=== PATIENT | female | born 1975 | race Caucasian/White ===

== ENCOUNTER → 2018-04-11 10:21 | Outpatient (CLI) | payer OTHER, SELFPAY ==
--- NOTE | 2018-04-11 10:24 | DI.RAD.S_ITS ---
PROCEDURE: XR RIBS LT MIN 3V W CXR1V INDICATIONS: left rib lateral injury, r/o fracture TECHNIQUE: 2 views of the left ribs were acquired, along with a single view chest. COMPARISON: [facility], , XR CHEST 2VW, 06/19/2017, 17:22. FINDINGS: Surgical changes and devices: None. Skin marker overlies the left 10th rib. Bones and chest wall: There is a mildly displaced fracture in the posterolateral aspect of the left 10th rib. Lungs and pleura: No pleural effusions or pneumothorax. Mild atelectasis at the left lung base. Mediastinum: Mediastinal contours appear normal. Heart size is normal. IMPRESSION: Fracture left 10th rib with overlying lower lobe atelectasis. No pneumothorax. Dictated by: Stan Grewal M.D. on 04/11/2018 at 10:38 Approved by: Stan Grewal M.D. on 04/11/2018 at 10:43
== END ==
PROVIDERS: PCP Family Medicine; Visit Provider Physician Assistant
DX: S22.32XA Fracture of one rib, left side, initial encounter for closed fracture (principal)
CPT/HCPCS: 71101

== ENCOUNTER 2019-05-29 06:18 | Emergency (ER) | payer OTHER, SELFPAY ==
[2019-05-29 06:22] VITALS: BP 158/139; PULSE 161; RESP 35; TEMP 36.5; O2SAT 87; BMI 27.4
[2019-05-29] MEDS: ALBUTEROL/IPRATROPIUM 3 ML AMPUL INH ×3 (06:24→07:22)
[2019-05-29 06:28] VITALS: PULSE 131; RESP 28; O2SAT 98
[2019-05-29] MEDS: DEXAMETHASONE 10 MG/ML VIAL PO (06:37)
[2019-05-29 06:47] VITALS: BP 140/84; PULSE 113; RESP 17; O2SAT 100
--- NOTE | 2019-05-29 06:52 | ED.SOB ---
HPI - SOB/Dyspnea General Chief Complaint: Shortness of Breath/Dyspnea Stated Complaint: Trouble breathing Time Seen by Provider: 05/29/19 06:20 Source: patient Mode of arrival: ambulatory Limitations: no limitations History of Present Illness Patient is a 43-year-old female with a history of asthma and allergies. She has a nebulizer at home which she states she uses occasionally. She also has an albuterol inhaler at home which she states she uses on a daily basis. She has been in the emergency department in the past for asthma but has never been admitted or intubated. Woke up this morning with wheezing. Was using the nebulizer at home but was unable to maintain her breathing so she came into the emergency department for evaluation. Related Data Previous Rx's Medication Instructions Recorded fluticasone propionate 1 spray INTRANASAL QDAY PRN #1 bot 05/12/17 pseudoephedrine HCl 30 mg PO Q6HP PRN #30 tab 08/17/17 hydrocodone 5 mg-acetaminophen 325 1 tab PO Q4-6H PRN #10 tab 04/11/18 mg tablet albuterol sulfate 3 ml INH Q4HP PRN #1 ea 10/03/18 varenicline 0.5 mg (11)-1 mg (42) See Rx Instructions PO PER PKG DIR 10/10/18 tablets in a dose pack #53 each montelukast [Singulair] 10 mg PO QDAY #30 tab 12/26/18 omeprazole 40 mg PO QAM #30 cap 12/26/18 varenicline 1 mg tablet 1 mg PO BID #56 tab 02/14/19 ipratropium-albuterol 0.5 mg-3 3 ml INHALATION Q8H PRN #90 ml 02/15/19 mg(2.5 mg base)/3 mL nebulization soln prednisone 20 mg tablet See Rx Instructions PO DAILY #30 02/21/19 tab atomoxetine 40 mg capsule 40 mg PO DAILY #30 cap 03/13/19 albuterol sulfate HFA 90 2 puff INHALATION Q4HP #3 inh 05/08/19 mcg/actuation aerosol inhaler temazepam 22.5 mg capsule 22.5 mg PO HS PRN #30 cap 05/08/19 Allergies Allergy/AdvReac Type Severity Reaction Status Date / Time No Known Allergies Allergy Uncoded 08/15/18 14:23 Review of Systems Constitutional Denies fever(s) and Denies headache(s) ENT Ears, Nose, Mouth, and Throat: Denies headache(s) Cardiovascular Denies chest pain and Reports dyspnea Respiratory Reports cough, Reports dyspnea and Reports wheezing Gastrointestinal Gastrointestinal: Denies abdominal pain, Denies nausea and Denies vomiting Musculoskeletal Denies myalgias and Denies arthralgias Integumentary/Breasts Denies new lesions and Denies rash Neurologic Denies headache(s) Hematologic/Lymphatic Denies easy bleeding and Denies easy bruising Allergic/Immunologic Denies urticaria and Reports wheezing [facility] Medical History Asthma (Acute) Environmental allergies (Acute) Surgical History Status post delivery (01/30/05) Family History Family/Other Family history of varicose veins Sister No problems noted. Social History number of children: 1 household members: spouse and children pets and animals: Yes education level: high school other: Camping, traveling, walking, hiking seatbelt use: sometimes helmet use: Yes (Sometimes) water heater temp set < 120 deg: Yes working smoke detector in home: Yes fire extinguisher in home: Yes carbon monox detector in home: Yes firearms in home: Yes Smoking Status: Former smoker alcohol intake: current substance use type: marijuana and other during the past year weight has: increased > 10 lbs well-balanced diet: rarely or never daily servings fruits/ve-1 caffeine: Yes (1-3 caffeine drinks per week) eating out: 1-3 times/week frequency: 1-2 times per week duration: 45-60 minutes/day 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 History number of children: 1 household members: spouse and children pets and animals: Yes education level: high school other: Camping, traveling, walking, hiking seatbelt use: sometimes helmet use: Yes (Sometimes) water heater temp set < 120 deg: Yes working smoke detector in home: Yes fire extinguisher in home: Yes carbon monox detector in home: Yes firearms in home: Yes Smoking Status: Former smoker alcohol intake: current substance use type: marijuana and other during the past year weight has: increased > 10 lbs well-balanced diet: rarely or never daily servings fruits/ve-1 caffeine: Yes (1-3 caffeine drinks per week) eating out: 1-3 times/week frequency: 1-2 times per week duration: 45-60 minutes/day 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 Initial Vital Signs Initial Vital Signs: Vital Signs Temperature 97.7 F 05/29/19 06:22 Pulse Rate 161 H 05/29/19 06:22 Respiratory Rate 35 H 05/29/19 06:22 Blood Pressure 158/139 H 05/29/19 06:22 Pulse Oximetry 87 L 05/29/19 06:22 Const General: cooperative, well developed, well groomed and No acute distress Orientation: alert and awake HENMT Head: normal to inspection and normocephalic Chest Chest: normal inspection of the chest Resp Effort & Inspection: audible wheezes, cough, labored, no retractions and tachypneic Auscultation: wheezes Cardio Rate: regular rate Rhythm: regular rhythm Pulses: radial pulses present GI Inspection: non-distended Palpation: soft and No firm Skin Lesions: no lesions Rashes: no rashes Neuro General: alert, awake and oriented x3 Cognition: normal cognition Speech: speech normal Extrem General: normal to inspection and capillary refill normal Psych Appearance: grossly normal and well kempt Course Orders Ordered: Discontinued Medications Albuterol/Ipratropium (Duoneb) 3 ml INH NOW ONE Stop: 05/29/19 06:21 Last Admin: 05/29/19 06:24 Dose: 3 ml Albuterol/Ipratropium (Duoneb) 3 ml INH NOW ONE Stop: 05/29/19 06:21 Last Admin: 05/29/19 06:24 Dose: 3 ml Albuterol/Ipratropium (Duoneb) 3 ml INH NOW ONE Stop: 05/29/19 06:28 Dexamethasone (Decadron) 10 mg PO NOW ONE Stop: 05/29/19 06:21 Last Admin: 05/29/19 06:37 Dose: 10 mg Vital Signs - 8 hr 05/29/19 06:22 05/29/19 06:28 05/29/19 06:47 Temperature 97.7 F Pulse Rate 161 H 131 H 113 H Respiratory Rate 35 H 28 H 17 Blood Pressure 158/139 H Blood Pressure [Left Arm] 140/84 Pulse Oximetry 87 L 98 100 MDM - SOB/Dyspnea MDM Narrative Medical decision making narrative: Patient received 2 duo nebs in the emergency department in this did improve her symptoms tremendously. Also received Decadron p.o. patient reports improvement of symptoms. Care turned over to day provider to re-evaluate and disposition Discharge Plan Departure Prescriptions: No Action hydrocodone-acetaminophen 5-325 mg tablet 1 tab PO Q4-6H PRN (Reason: fracture pain) Qty: 10 RF: 0 fluticasone propionate 16 GM spray,suspension 1 spray Intranasal QDAY PRNQty: 1 RF: 1 pseudoephedrine HCl 30 MG tablet 30 mg PO Q6HP PRNQty: 30 RF: 1 albuterol sulfate 2.5 mg /3 mL (0.083 %) solution for nebulization 3 ml INH Q4HP PRNQty: 1 RF: 5 varenicline [Chantix Starting Month Box] 0.5 mg (11)- 1 mg (42) tablets,dose pack See Rx Instructions PO PER PKG DIR Qty: 53 RF: 0 montelukast [Singulair] 10 mg tablet 10 mg PO QDAY Qty: 30 RF: 11 omeprazole 40 mg capsule,delayed release(DR/EC) 40 mg PO QAM Qty: 30 RF: 12 varenicline 1 mg tablet 1 mg PO BID Qty: 56 RF: 0 ipratropium-albuterol 0.5 mg-3 mg(2.5 mg base)/3 mL solution for nebulization 3 ml INHALATION Q8H PRN (Reason: shortness of breath or wheezing) Qty: 90 RF: 3 prednisone 20 mg tablet See Rx Instructions PO DAILY Qty: 30 RF: 0 atomoxetine 40 mg capsule 40 mg PO DAILY Qty: 30 RF: 2 Ventolin HFA 90 mcg/actuation HFA aerosol inhaler 2 puff INHALATION Q4HP Qty: 3 RF: 5 temazepam 22.5 mg capsule 22.5 mg PO HS PRN (Reason: sleep) Qty: 30 RF: 0
[2019-05-29 07:22] VITALS: PULSE 109; RESP 18; O2SAT 100
[2019-05-29 08:00] VITALS: BP 136/73; PULSE 119; RESP 17; O2SAT 100
== END 2019-05-29 08:28 | disposition home or self-care (01) ==
PROVIDERS: Emergency Provider Emergency Medicine; Family Provider Internal Medicine
DX: J45.901 Unspecified asthma with (acute) exacerbation (principal)
CPT/HCPCS: 36591; 94640; 99283; 99284; J1100

== ENCOUNTER 2019-10-02 04:04 | Emergency (ER) | payer OTHER, SELFPAY ==
[2019-10-02 04:07] VITALS: BP 125/73; PULSE 130; RESP 30; TEMP 36.4; O2SAT 97; BMI 27.4
--- NOTE | 2019-10-02 04:19 | DI.RAD.S_ITS ---
PROCEDURE: XR CHEST 2V INDICATIONS: wheeze, cough TECHNIQUE: 2 views of the chest were acquired. COMPARISON: None. FINDINGS: Surgical changes and devices: None. Lungs and pleura: Lungs are clear. No pleural effusions or pneumothorax. Mediastinum: Mediastinal contours are normal. Heart size is normal. Bones and chest wall: No suspicious bony abnormalities. Soft tissues appear unremarkable. IMPRESSION: No acute cardiopulmonary disease process. Dictated by: Nay Martinez MD, PhD on 10/02/2019 at 8:47 Approved by: Nay Martinez MD, PhD on 10/02/2019 at 8:48
[2019-10-02] MEDS: ALBUTEROL/IPRATROPIUM 3 ML AMPUL INH (04:28)
[2019-10-02] MEDS: predniSONE 20 MG TABLET 60 MG PO (04:50)
--- NOTE | 2019-10-02 05:17 | ED_ITS ---
HPI - Asthma General Chief Complaint: Asthma Stated Complaint: having asthma attack Time Seen by Provider: 10/02/19 04:04 Source: patient Mode of arrival: Ambulatory Limitations: no limitations History of Present Illness HPI Narrative: 43F former smoker with history of asthma presents with a chief complaint of a day or 2 of increased wheezing and trouble breathing. She admittedly has had some runny nose and sneezing but denies any fever or productive cough. She has been using her inhalers at home. The last time she used oral steroids was quite sometime ago MD complaint: asthma attack Onset (ago): day(s) Severity: moderate Context: recent URI Associated symptoms: dry cough Related Data Current Asthma Therapy: inhaled bronchodilator and inhaled steroid Previous Rx's Medication Instructions Recorded fluticasone propionate 1 spray INTRANASAL QDAY PRN #1 bot 05/12/17 pseudoephedrine HCl 30 mg PO Q6HP PRN #30 tab 08/17/17 albuterol sulfate 3 ml INH Q4HP PRN #1 ea 10/03/18 montelukast [Singulair] 10 mg PO QDAY #30 tab 12/26/18 omeprazole 40 mg PO QAM #30 cap 12/26/18 ipratropium-albuterol 0.5 mg-3 3 ml INHALATION Q8H PRN #90 ml 02/15/19 mg(2.5 mg base)/3 mL nebulization soln albuterol sulfate 90 mcg/actuation 2 puff INHALATION Q4HP #3 inh 05/08/19 aerosol inhaler albuterol sulfate 2 puff INHALATION Q4-6H PRN #8 gram 05/29/19 beclomethasone dipropionate [Qvar 1 puff INHALATION BID #10.6 gram 05/29/19 RediHaler] prednisone 20 mg tablet 40 mg PO DAILY #30 tab 07/10/19 atomoxetine 40 mg capsule See Rx Instructions .ROUTE 08/07/19 .COMPLEX #30 capsule temazepam 22.5 mg capsule 22.5 mg PO HS PRN #30 cap 08/30/19 prednisone 20 mg PO DAILY #5 tab 10/02/19 Allergies Allergy/AdvReac Type Severity Reaction Status Date / Time No Known Allergies Allergy Uncoded 07/10/19 15:50 Review of Systems Constitutional Constitutional: Denies chills, Denies fatigue, Denies fever(s), Denies frequent falls, Denies lethargy and Denies weakness Eyes Eyes: Denies change in vision, Denies eye discharge, Denies irritation and Denies loss of vision ENT Ears, Nose, Mouth, and Throat: Denies change in voice, Denies dizziness, Denies neck pain, Denies sore throat and Denies throat swelling Cardiovascular Cardiovascular: Denies chest pain, Denies irregular heart rhythm, Denies lightheadedness, Denies palpitations, Reports dyspnea, Denies dyspnea on exertion and Denies orthopnea Respiratory Respiratory: Reports cough, Reports dyspnea, Denies dyspnea on exertion and Reports wheezing Gastrointestinal Gastrointestinal: Denies abdominal pain, Denies change in bowel habits, Denies diarrhea, Denies nausea and Denies vomiting Genitourinary Genitourinary: Denies hematuria, Denies flank pain, Denies urinary incontinence and Denies urinary urgency Musculoskeletal Musculoskeletal: Denies back pain, Denies muscle weakness, Denies neck pain, Denies numbness and Denies tingling Integumentary/Breasts Skin/Breast: Denies pruritus, Denies erythema, Denies rash and Denies wounds Neurologic Neurologic: Denies behavioral changes, Denies confusion, Denies dizziness, Denies frequent falls, Denies loss of vision, Denies numbness, Denies tingling and Denies weakness Psychiatric Psychiatric: Denies anxiety, Denies behavioral changes, Denies confusion, Denies depression, Denies homicidal ideation and Denies suicidal ideation Endocrine Endocrine: Denies fatigue, Denies flushing and Denies palpitations Hematologic/Lymphatic Hematologic/Lymphatic: Denies easy bruising Allergic/Immunologic Allergic/Immunologic: Denies urticaria, Denies throat swelling and Reports wheezing Patient History Medical History Asthma (Acute) Environmental allergies (Acute) Surgical History Status post delivery (01/30/05) Family History Family/Other Family history of varicose veins Sister No problems noted. Social History number of children: 1 household members: spouse and children pets and animals: Yes education level: high school other: Camping, traveling, walking, hiking seatbelt use: sometimes helmet use: Yes (Sometimes) water heater temp set < 120 deg: Yes working smoke detector in home: Yes fire extinguisher in home: Yes carbon monox detector in home: Yes firearms in home: Yes Smoking Status: Former smoker alcohol intake: current substance use type: marijuana and other during the past year weight has: increased > 10 lbs well-balanced diet: rarely or never daily servings fruits/ve-1 caffeine: Yes (1-3 caffeine drinks per week) eating out: 1-3 times/week frequency: 1-2 times per week duration: 45-60 minutes/day 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 Well-nourished, well-developed patient, in mild distress. HEAD: Atraumatic. Normocephalic. EYES: Pupils equal round and reactive. Extraocular motions intact. No scleral icterus. No injection or drainage. ENT: Nose without bleeding, purulent drainage. Throat without erythema, tonsillar hypertrophy or exudate. Airway patent. NECK: Trachea midline. Non tender CARDIOVASCULAR: Regular rate and rhythm without murmurs, gallops, or rubs. RESPIRATORY: Expiratory wheeze bilaterally, no rales or rhonchi GASTROINTESTINAL: Abdomen soft, non-tender, nondistended. EXTREMITIES: No edema or joint tenderness. BACK: Nontender without deformity or crepitance. No flank tenderness. NEURO: AOx3. SKIN: No rash or erythema of visible areas Initial Vital Signs Initial Vital Signs: Vital Signs Temperature 97.6 F 10/02/19 04:07 Pulse Rate 130 H 10/02/19 04:07 Respiratory Rate 30 H 10/02/19 04:07 Blood Pressure 125/73 10/02/19 04:07 Pulse Oximetry 97 10/02/19 04:07 Course Orders Ordered: ED Orders 10/02/19 04:19 XR chest 2V Stat Discontinued Medications Albuterol/Ipratropium (Duoneb) 3 ml INH NOW ONE Stop: 10/02/19 04:20 Last Admin: 10/02/19 04:28 Dose: 3 ml Documented by: TSHARP Prednisone (Deltasone) 60 mg PO NOW ONE Stop: 10/02/19 04:20 Last Admin: 10/02/19 04:50 Dose: 60 mg Documented by: SAMI Reevaluation(s) Reevaluation #1: Patient has tremendous improvement with return to baseline after above-stated therapies Vital Signs Vital signs: Vital Signs - 8 hr 10/02/19 04:07 Temperature 97.6 F Pulse Rate 130 H Respiratory Rate 30 H Blood Pressure 125/73 Pulse Oximetry 97 MDM - Asthma Imaging Data Chest x-ray: Attestation: I personally reviewed and interpreted this imaging study as follows: My impression: No acute process Discharge Plan Departure Patient Disposition: Home Clinical Impression: Asthma exacerbation Qualifiers: Asthma severity: mild Asthma persistence: unspecified Qualified Code(s): J45.901 - Unspecified asthma with (acute) exacerbation Instructions: DI for Asthma -- Adult Activity Restrictions/Additional Instructions: *You have been diagnosed with [asthma exacerbation] *What to do: *Take medications as directed: Prescriptions sent to [facility] *Follow up with your primary care provider in 2-3 days, call for an appointment. Let them know you were seen in the Emergency Department and that we ask that you be seen in follow up *Return to ER if you should have any new, worsening or concerning symptoms Prescriptions: New prednisone 20 mg tablet 20 mg PO DAILY Qty: 5 RF: 0 No Action prednisone 20 mg tablet 40 mg PO DAILY Qty: 30 RF: 0 fluticasone propionate 16 GM spray,suspension 1 spray Intranasal QDAY PRNQty: 1 RF: 1 pseudoephedrine HCl 30 MG tablet 30 mg PO Q6HP PRNQty: 30 RF: 1 albuterol sulfate 2.5 mg /3 mL (0.083 %) solution for nebulization 3 ml INH Q4HP PRNQty: 1 RF: 5 montelukast [Singulair] 10 mg tablet 10 mg PO QDAY Qty: 30 RF: 11 omeprazole 40 mg capsule,delayed release(DR/EC) 40 mg PO QAM Qty: 30 RF: 12 ipratropium-albuterol 0.5 mg-3 mg(2.5 mg base)/3 mL solution for nebulization 3 ml INHALATION Q8H PRN (Reason: shortness of breath or wheezing) Qty: 90 RF: 3 Ventolin HFA 90 mcg/actuation HFA aerosol inhaler 2 puff INHALATION Q4HP Qty: 3 RF: 5 atomoxetine 40 mg capsule See Rx Instructions .ROUTE .COMPLEX Qty: 30 RF: 2 temazepam 22.5 mg capsule 22.5 mg PO HS PRN (Reason: sleep) Qty: 30 RF: 0 albuterol sulfate 90 mcg/actuation HFA aerosol inhaler 2 puff INHALATION Q4-6H PRN (Reason: shortness of breath or wheezing) Qty: 8 RF: 0 Qvar RediHaler 80 mcg/actuation HFA aerosol breath activated 1 puff INHALATION BID Qty: 10.6 RF: 0
[2019-10-02 06:21] VITALS: BP 116/56; PULSE 105; RESP 18; O2SAT 100
== END 2019-10-02 05:30 | disposition home or self-care (01) ==
PROVIDERS: Emergency Provider Emergency Medicine; Family Provider Internal Medicine
DX: J45.901 Unspecified asthma with (acute) exacerbation (principal); Z87.891 Personal history of nicotine dependence
CPT/HCPCS: 71046; 94150; 94640; 99283

== ENCOUNTER 2019-11-12 21:23 | Emergency (ER) | payer OTHER, SELFPAY ==
[2019-11-12 21:29] VITALS: BP 169/95; PULSE 143; RESP 24; TEMP 36.3; O2SAT 100
[2019-11-12] MEDS: ALBUTEROL/IPRATROPIUM 3 ML AMPUL INH ×2 (21:29→21:56)
[2019-11-12 21:42] VITALS: PULSE 111; O2SAT 99
--- NOTE | 2019-11-12 21:46 | ED_ITS ---
HPI - Asthma General Chief Complaint: Asthma Stated Complaint: trouble breathing Time Seen by Provider: 11/12/19 21:29 Source: patient Mode of arrival: Ambulatory Limitations: no limitations History of Present Illness HPI Narrative: 44-year-old female with a history of asthma. Is on Singulair, Atrovent and albuterol. States she uses her albuterol multiple times a day states that earlier today started having wheezing and problems breathing that has improved with her home treatments. Related Data Previous Rx's Medication Instructions Recorded fluticasone propionate 1 spray INTRANASAL QDAY PRN #1 bot 05/12/17 pseudoephedrine HCl 30 mg PO Q6HP PRN #30 tab 08/17/17 albuterol sulfate 3 ml INH Q4HP PRN #1 ea 10/03/18 montelukast [Singulair] 10 mg PO QDAY #30 tab 12/26/18 omeprazole 40 mg PO QAM #30 cap 12/26/18 ipratropium-albuterol 0.5 mg-3 3 ml INHALATION Q8H PRN #90 ml 02/15/19 mg(2.5 mg base)/3 mL nebulization soln albuterol sulfate 90 mcg/actuation 2 puff INHALATION Q4HP #3 inh 05/08/19 aerosol inhaler albuterol sulfate 2 puff INHALATION Q4-6H PRN #8 gram 05/29/19 prednisone 20 mg tablet 40 mg PO DAILY #30 tab 07/10/19 prednisone 20 mg PO DAILY #5 tab 10/02/19 beclomethasone dipropionate 80 1 inhalation INHALATION BID #10.6 10/06/19 mcg/actuation HFA breath activated gram aerosol atomoxetine 40 mg capsule See Rx Instructions .ROUTE 11/06/19 .COMPLEX #30 capsule temazepam 22.5 mg capsule 22.5 mg PO HS PRN #30 cap 11/07/19 Allergies Allergy/AdvReac Type Severity Reaction Status Date / Time No Known Allergies Allergy Uncoded 07/10/19 15:50 Review of Systems Constitutional Constitutional: Denies fever(s) Cardiovascular Cardiovascular: Denies chest pain, Reports dyspnea and Reports dyspnea on exertion Respiratory Respiratory: Reports cough, Reports dyspnea, Reports dyspnea on exertion and Reports wheezing Gastrointestinal Gastrointestinal: Denies change in stool character Musculoskeletal Musculoskeletal: Denies myalgias and Denies arthralgias Integumentary/Breasts Skin/Breast: Denies lesions and Denies rash Neurologic Neurologic: Denies behavioral changes Psychiatric Psychiatric: Denies behavioral changes Hematologic/Lymphatic Hematologic/Lymphatic: Denies easy bleeding and Denies easy bruising Allergic/Immunologic Allergic/Immunologic: Denies urticaria and Reports wheezing Patient History Medical History Asthma (Acute) Environmental allergies (Acute) Family History Family/Other Family history of varicose veins Sister No problems noted. Social History number of children: 1 household members: spouse and children pets and animals: Yes education level: high school other: Camping, traveling, walking, hiking seatbelt use: sometimes helmet use: Yes (Sometimes) water heater temp set < 120 deg: Yes working smoke detector in home: Yes fire extinguisher in home: Yes carbon monox detector in home: Yes firearms in home: Yes Smoking Status: Former smoker alcohol intake: current substance use type: marijuana and other during the past year weight has: increased > 10 lbs well-balanced diet: rarely or never daily servings fruits/ve-1 caffeine: Yes (1-3 caffeine drinks per week) eating out: 1-3 times/week frequency: 1-2 times per week duration: 45-60 minutes/day 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 Smoking Status: Former smoker alcohol intake frequency: other Substance Use Type: does not use Exam Initial Vital Signs Initial Vital Signs: Vital Signs Temperature 97.3 F L 11/12/19 21:29 Pulse Rate 143 H 11/12/19 21:29 Respiratory Rate 24 11/12/19 21:29 Blood Pressure 169/95 H 11/12/19 21:29 Pulse Oximetry 100 11/12/19 21:29 Const General: cooperative and comfortable Resp Effort & Inspection: normal respiratory effort Auscultation: wheezes Cardio Rate: tachycardic Rhythm: regular rhythm Skin Lesions: no lesions Rashes: no rashes Neuro General: awake Cognition: normal cognition Speech: speech normal Extrem General: normal to inspection and capillary refill normal Course Orders Ordered: Discontinued Medications Albuterol/Ipratropium (Duoneb) 3 ml INH NOW ONE Stop: 11/12/19 21:47 Last Admin: 11/12/19 21:56 Dose: 3 ml Documented by: JEREMIAH Dexamethasone (Decadron) 12 mg PO NOW ONE Stop: 11/12/19 21:47 Last Admin: 11/12/19 21:56 Dose: 12 mg Documented by: JEREMIAH Vital Signs Vital signs: Vital Signs - 8 hr 11/12/19 21:29 11/12/19 21:42 Temperature 97.3 F L Pulse Rate 143 H 111 H Respiratory Rate 24 Blood Pressure [Left Arm] 169/95 H Pulse Oximetry 100 99 MDM - Asthma MDM Narrative Medical decision making narrative: Symptoms improved with treatments. Suspect the tachycardia is related to the albuterol. Given a dose of steroids. Low suspicion for pneumonia. Feels much better after 2nd treatment. States she feels like she can go home. Discussed return precautions and follow-up instructions. She expressed understanding and agreement with plan. Discharge Plan Departure Patient Disposition: Home Clinical Impression: Asthma exacerbation Qualifiers: Asthma severity: unspecified severity Asthma persistence: unspecified Qualified Code(s): J45.901 - Unspecified asthma with (acute) exacerbation Discharge Date/Time: 11/12/19 22:40 Instructions: DI for Asthma -- Adult Activity Restrictions/Additional Instructions: Continue all of your medications as directed. Contact your primary provider for follow-up. Return to the emergency department for any new or worsening symptoms Prescriptions: No Action prednisone 20 mg tablet 40 mg PO DAILY Qty: 30 RF: 0 fluticasone propionate 16 GM spray,suspension 1 spray Intranasal QDAY PRNQty: 1 RF: 1 pseudoephedrine HCl 30 MG tablet 30 mg PO Q6HP PRNQty: 30 RF: 1 albuterol sulfate 2.5 mg /3 mL (0.083 %) solution for nebulization 3 ml INH Q4HP PRNQty: 1 RF: 5 montelukast [Singulair] 10 mg tablet 10 mg PO QDAY Qty: 30 RF: 11 omeprazole 40 mg capsule,delayed release(DR/EC) 40 mg PO QAM Qty: 30 RF: 12 ipratropium-albuterol 0.5 mg-3 mg(2.5 mg base)/3 mL solution for nebulization 3 ml INHALATION Q8H PRN (Reason: shortness of breath or wheezing) Qty: 90 RF: 3 Ventolin HFA 90 mcg/actuation HFA aerosol inhaler 2 puff INHALATION Q4HP Qty: 3 RF: 5 Qvar RediHaler 80 mcg/actuation HFA aerosol breath activated 1 inhalation INHALATION BID Qty: 10.6 RF: 3 atomoxetine 40 mg capsule See Rx Instructions .ROUTE .COMPLEX Qty: 30 RF: 0 temazepam 22.5 mg capsule 22.5 mg PO HS PRN (Reason: sleep) Qty: 30 RF: 0 albuterol sulfate 90 mcg/actuation HFA aerosol inhaler 2 puff INHALATION Q4-6H PRN (Reason: shortness of breath or wheezing) Qty: 8 RF: 0 prednisone 20 mg tablet 20 mg PO DAILY Qty: 5 RF: 0
[2019-11-12] MEDS: dexAMETHasone 4 MG TABLET 12 MG PO (21:56)
== END 2019-11-12 22:40 | disposition home or self-care (01) ==
PROVIDERS: Emergency Provider Emergency Medicine; Family Provider Internal Medicine
DX: J45.901 Unspecified asthma with (acute) exacerbation (principal)
CPT/HCPCS: 94640; 99281; 99283

== ENCOUNTER → 2021-02-21 07:46 | Outpatient (CLI) | payer OTHER, SELFPAY ==
[2021-02-21] MEDS: COVID-19 VACC #1, MRNA(MOD) 100 MCG/0.5 ML VIAL IM (07:53)
== END ==
PROVIDERS: Family Provider Internal Medicine; Visit Provider Internal Medicine
DX: Z23 Encounter for immunization (principal)
CPT/HCPCS: 0011A; 91301

== ENCOUNTER → 2021-03-21 15:18 | Outpatient (CLI) | payer OTHER, SELFPAY ==
[2021-03-21] MEDS: COVID-19 VACC #2, MRNA(MOD) 100 MCG/0.5 ML VIAL IM (15:20)
== END ==
PROVIDERS: Family Provider Internal Medicine; Visit Provider Internal Medicine
DX: Z23 Encounter for immunization (principal)
CPT/HCPCS: 0012A; 91301

== ENCOUNTER → 2025-01-12 10:15 | Outpatient (CLI) | payer BC, SELFPAY ==
[2025-01-12 12:51] LABS: Hemoglobin A1C% w Est Avg Glu 4.7 % (4.0-6.0)
[2025-01-12 13:10] LABS: Alanine Aminotransferase 31 IU/L (<35); Albumin 4.7 g/dL (3.5-5.0); Albumin Globulin Ratio 1.8 (1.0-2.8); Alkaline Phosphatase 89 U/L (38-126); Aspartate Aminotransferase 31 IU/L (14-36); Blood Urea Nitrogen 21 mg/dL (7-17); Calcium 10.1 mg/dL (8.4-10.2); Carbon Dioxide 25 mmol/L (22-32); Chloride 104 mmol/L (98-107); Cholesterol 283 mg/dL (140-199); Estimated Glomerular Filt Rate > 60 mL/min (>60); Globulin 2.6 g/dL (1.7-4.1); Glucose 86 mg/dL (70-100); HDL Cholesterol 105 mg/dL (40-60); HEMOLYSIS < 15 (0-50); LDL Cholesterol Calculated 161 mg/dL (<100); Sodium 140 mmol/L (137-145); Total Protein 7.3 g/dL (6.3-8.2); Triglycerides 86 mg/dL (35-150)
[2025-01-12 13:55] LABS: Vitamin B12 359 pg/mL (239-931)
[2025-01-12 14:09] LABS: Vitamin D 25 Hydroxy (D3) 29.5 ng/mL (30.0-100.0)
== END ==
PROVIDERS: Physician Assistant; Family Provider Internal Medicine; PCP Family Medicine; Referring Provider Family Medicine; Visit Provider Family Medicine
DX: Z13.1 Encounter for screening for diabetes mellitus (principal); Z13.220 Encounter for screening for lipoid disorders; Z13.6 Encounter for screening for cardiovascular disorders; F98.8 Other specified behavioral and emotional disorders with onset usually occurring in childhood and adolescence; E55.9 Vitamin D deficiency, unspecified; E53.8 Deficiency of other specified B group vitamins; Z68.32 Body mass index [BMI] 32.0-32.9, adult
CPT/HCPCS: 36415; 80053; 80061; 82306; 82607; 83036

== ENCOUNTER → 2025-01-31 14:49 | Outpatient (CLI) | payer BC, SELFPAY ==
--- NOTE | 2025-01-31 14:50 | DI.MG.S_ITS ---
MM screening mammo BI: 01/31/2025. BI-RADS: 1 CLINICAL: 49-year old female for bilateral screening mammogram. Tyrer-Cuzick lifetime risk of 10.4%. No personal or first-degree family history of breast cancer. PRIOR EXAMS: None. This is a baseline mammogram. MAMMOGRAPHY TECHNIQUE: 2D and 3D (tomosynthesis) digital mammographic views obtained, with additional images as needed for full coverage. Current study was also evaluated with a Computer Aided Detection (CAD) system. DENSITY C. The breasts are heterogeneously dense, which may obscure small masses. MAMMOGRAPHY FINDINGS Bilateral: No suspicious mass, asymmetry, microcalcification, or other abnormality seen. IMPRESSION: * No evidence of malignancy. RECOMMENDATIONS Bilateral * Annual screening mammography. OVERALL ASSESSMENT CATEGORY BI-RADS-1: Negative. The [employer] recommends annual screening mammography beginning at age 40 for women with average risk of breast cancer. ELECTRONICALLY SIGNED: Katie Phelps M.D. on 01/31/2025 at 05:40:01 PM PT Interpreting Station ID: [id number]
== END ==
PROVIDERS: PCP Family Medicine; Referring Provider Family Medicine; Visit Provider Family Medicine
DX: Z12.31 Encounter for screening mammogram for malignant neoplasm of breast (principal); R92.333 Mammographic heterogeneous density, bilateral breasts
CPT/HCPCS: 77063; 77067